=== PATIENT | female | born 1990 | race Caucasian/White ===

== ENCOUNTER → 2017-08-08 | Outpatient (CLI) | payer BC ==
[~2017-08-08] MED LIST: EXCETAB PO; PROM25SU8 PO; ZITHTAB6 PO
== END ==
LOC: HPND 08:35
PROVIDERS: ATTEND Obstetrics & Gynecology
DX: O43.892 Other placental disorders, second trimester (principal)
CPT/HCPCS: 76805

== ENCOUNTER → 2017-08-23 | Outpatient (CLI) | payer BC | LOC: HPND 10:11 | PROVIDERS: ATTEND Obstetrics & Gynecology | DX: O43.892 Other placental disorders, second trimester (principal) | CPT/HCPCS: 76815; 76817 ==

== ENCOUNTER 2017-12-07 20:36 | Inpatient (IN) | payer BC, MEDICAID ==
[~2017-12-07] VITALS: Ht 170.2 cm; Wt 81.6 kg
--- NOTE | 2017-12-07 21:30 | PD ---
HPI Chief Complaint Contractions Travel History International Travel<30 Days: No Contact w/Intl Traveler<30Days: No Known Affected Area: No History of Present Illness HPI 27-year-old , IUP at 40.2 care uncomplicated. The patient presents complaining of the onset of painful contractions that started approximately 2 hours before she presented. She reports that the contractions have become regular and are occurring every 2-4 minutes. There are no alleviating factors and no attempted treatments. She reports contractions have increased in intensity and frequency and are becoming aggravated with time. She denies any leaking of fluid or vaginal bleeding. She reports good movement. She has no other obstetric complaints today. Weeks Gestation: 40 Para: 0 : 1 History Past Medical History Medical History: Denies Significant Hx Obstetric History Obstetric History Past Surgical History Narrative Surgical Hand surgery Family History Family History: Negative Social History Alcohol Use: No Tobacco Use: No Substance Abuse: No Allergies-Medications (Allergen,Severity, Reaction): Coded Allergies: No Known Allergies (Verified Allergy, Unknown, 12/07/17) Home Meds Active Scripts Promethazine Hcl (Promethazine Hcl) 25 Mg Tab, 25 MG PO Q6H Y for NAUSEA OR VOMITING, #10 TAB FOR NAUSEA/VOMITING Prov:Suzan Hodgson MD 09/18/15 Azithromycin (Zithromax Tri-Thierry) Tab, 500 MG PO DIRECTED for 3 Days, TAB 1 TAB (500 MG) PO DAILY FOR 3 DAYS. Prov:Suzan Hodgson MD 09/18/15 Reported Medications [id number]-Ndkfiexv (Excedrin Migraine) Migraine Tab, 1 PO DAILY 09/18/15 Review of Systems Except as stated in HPI: all other systems reviewed are Neg Physical Exam Narrative GENERAL: Well-nourished, well-developed patient. SKIN: Warm and dry. HEAD: Normocephalic and atraumatic. EYES: No scleral icterus. No injection or drainage. ENT: No nasal drainage noted. Mucous membranes pink. Airway patent. NECK: Supple, trachea midline. No JVD. CARDIOVASCULAR: Regular rate and rhythm without murmurs, gallops, or rubs. RESPIRATORY: Breath sounds equal bilaterally. No accessory muscle use. BREASTS: Deferred ABDOMEN/GI: Abdomen soft, non-tender, bowel sounds present, no rebound, no guarding Gravid GENITOURINARY: External Genitalia: intact and normal in appearance. Normal BUS. Grossly normal rugated. Physiologic discharge. No cervical or vaginal masses noted. Closed/80/-1 with cervical change to 1/complete/-1. FHT's: heart tones are in the 130s with moderate long-term variability, good accelerations, no decelerations noted. This is a category 1 heart rate tracing a reactive NST. EXTREMITIES: No cyanosis or edema. BACK: Nontender without obvious deformity. NEUROLOGICAL: Awake and alert. Motor and sensory grossly within normal limits. Psychiatric: Grossly normal memory and affect new Musculoskeletal: Grossly normal range of motion, gait, muscle strength MDM Plan Assessment/plan: 1. IUP at 40.2 2. Latent labor: Discussed with Dr. Raymond and will admit overnight, with augmentation as needed in the a.m. the patient is in agreement with the plan and all her questions were answered. 3. heart tones reassuring with a reactive NST and category 1 heart rate tracing, will continue to monitor 4. GBS negative Eufemia Marie MD December 07, 2017 21:30
[2017-12-07] MEDS ORDERED: LACTATED RINGER'S 1000 ML INJ 1,000 ML IV PRN (21:36)
[2017-12-07] MEDS ORDERED: CITRIC ACID-SODIUM CITRATE LIQ 30 ML UDC PO SCH (21:45)
[2017-12-07] MEDS ORDERED: MINERAL OIL 10 ML VIAL TOPICAL PRN (21:45)
[2017-12-07] MEDS ORDERED: LIDOCAINE HCL 1% 50 ML VIAL I-DERMAL PRN (21:45)
[2017-12-07] MEDS ORDERED: LIDOCAINE HCL 1% 50 ML VIAL INFIL PRN (21:45)
[2017-12-07] MEDS ORDERED: SODIUM CHLORID 0.9% 500 ML INJ 500 ML IV PRN (21:45)
[2017-12-07] MEDS ORDERED: OXYTOCIN 30 UNITS-500ML PREMIX 500 ML IV ONE (21:45)
[2017-12-07] MEDS ORDERED: SODIUM CHLOR 0.9% 1000 ML INJ 1,000 ML IV PRN (21:56)
--- NOTE | 2017-12-07 22:01 | HHI.HP ---
History & Physical H&P Patient Name: Justin Mims Unit Number: [id number] Date of : 1990 Patient Status: Admitted Inpatient Attending Doctor: Evette Raymond MD HPI HPI Chief Complaint Contractions Travel History International Travel<30 Days: No Contact w/Intl Traveler<30Days: No Known Affected Area: No History of Present Illness HPI 27-year-old , IUP at 40.2 care uncomplicated. The patient presents complaining of the onset of painful contractions that started approximately 2 hours before she presented. She reports that the contractions have become regular and are occurring every 2-4 minutes. There are no alleviating factors and no attempted treatments. She reports contractions have increased in intensity and frequency and are becoming aggravated with time. She denies any leaking of fluid or vaginal bleeding. She reports good movement. She has no other obstetric complaints today. Weeks Gestation: 40 Para: 0 : 1 History (Limited) History Past Medical History Medical History: Denies Significant Hx Obstetric History Obstetric History Past Surgical History Narrative Surgical Hand surgery Family History Family History: Negative Social History Alcohol Use: No Tobacco Use: No Substance Abuse: No Allergies-Medications Allergies-Medications (Allergen,Severity, Reaction): Coded Allergies: No Known Allergies (Verified Allergy, Unknown, 12/07/17) Home Meds Active Scripts Promethazine Hcl (Promethazine Hcl) 25 Mg Tab, 25 MG PO Q6H Y for NAUSEA OR VOMITING, #10 TAB FOR NAUSEA/VOMITING Prov:Suzan Hodgson MD 09/18/15 Azithromycin (Zithromax Tri-Thierry) Tab, 500 MG PO DIRECTED for 3 Days, TAB 1 TAB (500 MG) PO DAILY FOR 3 DAYS. Prov:Suzan Hodgson MD 09/18/15 Reported Medications [id number]-Mysptjtclmxxh-Dnzjvclg (Excedrin Migraine) Migraine Tab, 1 PO DAILY 09/18/15 ROS Review of Systems Except as stated in HPI: all other systems reviewed are Neg Physical Exam Physical Exam Narrative GENERAL: Well-nourished, well-developed patient. SKIN: Warm and dry. HEAD: Normocephalic and atraumatic. EYES: No scleral icterus. No injection or drainage. ENT: No nasal drainage noted. Mucous membranes pink. Airway patent. NECK: Supple, trachea midline. No JVD. CARDIOVASCULAR: Regular rate and rhythm without murmurs, gallops, or rubs. RESPIRATORY: Breath sounds equal bilaterally. No accessory muscle use. BREASTS: Deferred ABDOMEN/GI: Abdomen soft, non-tender, bowel sounds present, no rebound, no guarding Gravid GENITOURINARY: External Genitalia: intact and normal in appearance. Normal BUS. Grossly normal rugated. Physiologic discharge. No cervical or vaginal masses noted. Closed/80/-1 with cervical change to 1/complete/-1. FHT's: heart tones are in the 130s with moderate long-term variability, good accelerations, no decelerations noted. This is a category 1 heart rate tracing a reactive NST. EXTREMITIES: No cyanosis or edema. BACK: Nontender without obvious deformity. NEUROLOGICAL: Awake and alert. Motor and sensory grossly within normal limits. Psychiatric: Grossly normal memory and affect new Musculoskeletal: Grossly normal range of motion, gait, muscle strength Data Data [facility] Plan Assessment/plan: 1. IUP at 40.2 2. Latent labor: Discussed with Dr. Raymond and will admit overnight, with augmentation as needed in the a.m. the patient is in agreement with the plan and all her questions were answered. 3. heart tones reassuring with a reactive NST and category 1 heart rate tracing, will continue to monitor 4. GBS negative Eufemia Marie MD December 07, 2017 21:30 Eufemia Marie MD December 07, 2017 22:01
[2017-12-07 22:31] VITALS: BP 147/90; PULSE 76
[2017-12-07] MEDS: LACTATED RINGER'S 1000 ML INJ 1,000 ML IV SCH (22:32)
[2017-12-07] MEDS ORDERED: PRENTAB7 (22:35)
[2017-12-07 22:40] VITALS: BP 128/82; PULSE 83
[2017-12-07 23:29] LABS: AUTOMATED NEUTROPHIL # 10.1 TH/MM3 (1.8-7.7); BASOPHIL # 0.1 TH/MM3 (0-0.2); BASOPHIL % 0.5 % (0.0-2.0); EOSINOPHIL # 0.1 TH/MM3 (0-0.4); EOSINOPHIL % 0.4 % (0.0-4.0); HEMATOCRIT 39.8 % (35.0-46.0); HEMOGLOBIN 13.4 GM/DL (11.6-15.3); LYMPH % 18.2 % (9.0-44.0); LYMPHOCYTE # 2.4 TH/MM3 (1.0-4.8); MEAN CELL VOLUME 86.5 FL (80.0-100.0); MEAN CORPUSCULAR HEMOGLOBIN 29.1 PG (27.0-34.0); MEAN CORPUSCULAR HGB CONC 33.6 % (32.0-36.0); MEAN PLATELET VOLUME 10.7 FL (7.0-11.0); MONO % 5.2 % (0.0-8.0); MONOCYTE # 0.7 TH/MM3 (0-0.9); NEUT % 75.7 % (16.0-70.0); PLATELET COUNT 180 TH/MM3 (150-450); RED CELL DISTRIBUTION WIDTH 13.6 % (11.6-17.2); WHITE BLOOD COUNT 13.3 TH/MM3 (4.0-11.0)
[2017-12-07 23:46] LABS: BACTERIA, URINE RARE /hpf; BILIRUBIN, URINE NEG (NEG); BLOOD, URINE NEG (NEG); GLUCOSE,URINE NEG (NEG); KETONE, URINE NEG (NEG); MUCUS URINE FEW /lpf (OCC); NITRITE,URINE NEG (NEG); PH, URINE 6.5 (5.0-8.5); SQUAMOUS EPITHELIAL CELL URINE <1 /hpf (0-5); URINE COLOR LIGHT-YELLOW (YELLW/STRAW); URINE LEUKOCYTE ESTERASE NEG (NEG)
[2017-12-08] VITALS (51 sets, daily range): BP systolic 99–154; BP diastolic 55–98; PULSE 75–122; RESP 15–18; TEMP 97.7–98.7
[2017-12-08] MEDS ORDERED: fentaNYL 2MCG-BUPIV 0.125% INJ 100 ML ONE (00:58)
[2017-12-08] MEDS ORDERED: ePHEDrine/NS 25 MG/5 ML SYRINGE ONE (01:00)
[2017-12-08] MEDS ORDERED: LIDOCAINE 2%/EPINEPHrine PF 1:200,000 20ML SDV ONE (01:14)
[2017-12-08] MEDS: LACTATED RINGER'S 1000 ML INJ 1,000 ML IV SCH (02:20)
[2017-12-08] MEDS: ONDANSETRON HCL 4 MG/2 ML VIAL IV PUSH PRN ×2 (04:50→09:03)
[2017-12-08] MEDS: fentaNYL 2MCG-BUPIV 0.125% 100 ML EPIDURAL PRN ×2 (04:58→08:56)
[2017-12-08] MEDS ORDERED: fentaNYL 2MCG-BUPIV 0.125% 150 ML EPIDURAL PRN (05:00)
[2017-12-08] MEDS ORDERED: NO SYSTEM NARCOTICS PRN (05:00)
[2017-12-08] MEDS ORDERED: ePHEDrine/NS 25 MG/5 ML SYRINGE IV PUSH PRN (05:00)
[2017-12-08] MEDS ORDERED: DO NOT ADMINISTER ANTICOAGULANTS PRN (05:00)
[2017-12-08] MEDS ORDERED: OXYTOCIN 30 UNITS/NS 500ML PREMIX IV PRN (08:00)
[2017-12-08] MEDS ORDERED: ONDANSETRON HCL 4 MG/2 ML VIAL IV PUSH ONE (10:00)
--- NOTE | 2017-12-08 11:24 | PD.OB.DELI ---
Weeks gestation: 40 Anesthesia: Epidural Episiotomy: None Vaginal Delivery: Normal Presentation: Occiput anterior Nuchal Cord: None Delayed cord clamping (45 sec): Yes : Male Delivery date: December 08, 2017 Delivery time: 11:02 One Minute : 9 Five Minute : 9 Weight: 3760g Placenta: Spontaneous delivery, Intact, 3 vessel cord Laceration: 1 deg (left labial), 2 deg (perineal) Repair: Vicryl running (3-0 vicryl running for perineal laceration, 5-0 vicryl running for left labial laceration) Estimated blood loss: 250cc Additional Information Baby Bryan! Supervised by Dr. Raymond. Jennie Rondon MD R3 December 08, 2017 11:23
[2017-12-08] MEDS ORDERED: OXYTOCIN 30 UNITS-500ML PREMIX 500 ML IV SCH (11:30)
[2017-12-08] MEDS ORDERED: ONDANSETRON ODT 4 MG TAB PO PRN (11:30)
[2017-12-08] MEDS ORDERED: DOCUSATE SODIUM 50 MG/SENNA 8.6 MG TAB PO PRN (11:30)
[2017-12-08] MEDS ORDERED: ALUMINUM/MAGNESIUM/SIMETH 30 ML CUP PO PRN (11:30)
[2017-12-08] MEDS ORDERED: oxyCODONE/ACETAMINOPHEN 5 MG/325 MG TAB PO PRN ×2 (11:30)
[2017-12-08] MEDS ORDERED: ACETAMINOPHEN 325 MG TAB PO PRN (11:30)
[2017-12-08] MEDS ORDERED: SODIUM CHLORIDE 0.9% FLUSH 10 ML FLUSH IV FLUSH PRN (11:30)
[2017-12-08] MEDS ORDERED: ZOLPIDEM TARTRATE 5 MG TAB PO PRN (11:30)
[2017-12-08] MEDS ORDERED: WITCH HAZEL 50%/GLYCERIN 12.5% 40 PAD JAR TOPICAL PRN (11:30)
[2017-12-08] MEDS ORDERED: BENZOCAINE 20% TOPICAL SPRAY 60 ML CAN TOPICAL PRN (11:30)
[2017-12-08] MEDS ORDERED: DIPHTH/TETANUS/ACEL PERTUSSIS (BOOSTER) 0.5 ML VIAL/PFS IM ONE (16:00)
[2017-12-08] MEDS ORDERED: MEASLES, MUMPS, RUBELLA VACCINE 0.5 ML VIAL SQ ONE (16:00)
[2017-12-08] MEDS: IBUPROFEN 800 MG TAB PO PRN (17:52)
[2017-12-08] MEDS ORDERED: SODIUM CHLORIDE 0.9% FLUSH 10 ML FLUSH IV FLUSH SCH (21:00)
[2017-12-09 00:26] VITALS: RESP 16
[2017-12-09] MEDS: IBUPROFEN 800 MG TAB PO PRN ×2 (01:00→14:32)
--- NOTE | 2017-12-09 07:37 | HHI.OB ---
Subjective Post Day: 1 Remarks Doing well, Pain is controlled Baby is doing well Bleeding is normal Objective Vitals/I&O Vital Signs Date Time Temp Pulse Resp B/P (MAP) Pulse Ox O2 Delivery O2 Flow Rate FiO2 12/09/17 00:26 16 12/08/17 22:45 16 12/08/17 19:54 82 16 120/91 (101) 12/08/17 19:54 98.5 12/08/17 14:39 97.8 81 18 129/88 (102) 12/08/17 13:15 18 12/08/17 12:30 16 12/08/17 12:15 96 128/90 (103) 12/08/17 12:00 18 12/08/17 11:45 103 134/93 (107) 12/08/17 11:45 18 12/08/17 11:31 110 135/72 (93) 12/08/17 11:30 110 140/90 (107) 12/08/17 11:23 98.2 116 17 143/88 (106) 12/08/17 11:01 122 154/84 (107) 12/08/17 10:30 113 140/98 (112) 12/08/17 10:18 18 12/08/17 10:00 92 110/61 (77) 12/08/17 09:30 87 121/78 (92) 12/08/17 09:15 98.4 12/08/17 09:15 17 12/08/17 08:09 18 12/08/17 08:00 89 114/62 (79) Objective Remarks GENERAL: Well-nourished, well-developed patient. CARDIOVASCULAR: Regular rate and rhythm without murmurs, gallops, or rubs. RESPIRATORY: Breath sounds equal bilaterally. No accessory muscle use. ABDOMEN/GI: Abdomen soft, non-tender. Fundus: Firm, non-tender at umbilicus. GENITOURINARY: Light to moderate bleeding. EXTREMITIES: No cyanosis or edema, non-tender, without signs of DVT. Medications and IVs Current Medications Medications (Trade) Dose Ordered Sig/Dotty Route Start Time Stop Time Status Last Admin (NS Flush) 2 ml BID IV FLUSH 12/08/17 21:00 (NS Flush) 2 ml UNSCH PRN IV FLUSH 12/08/17 11:30 (Tylenol) 650 mg Q4H PRN PO 12/08/17 11:30 (Motrin) 800 mg Q8H PRN PO 12/08/17 11:30 12/09/17 01:00 (Percocet 5-325 Mg) 1 tab Q4H PRN PO 12/08/17 11:30 (Percocet 5-325 Mg) 2 tab Q4H PRN PO 12/08/17 11:30 (Americaine 20% Top Spr) 1 spray Q4H PRN TOPICAL 12/08/17 11:30 (Tucks Pads) 1 applic QID PRN TOPICAL 12/08/17 11:30 (Mell-Colace) 2 tab Q12H PRN PO 12/08/17 11:30 (Ambien) 5 mg HS PRN PO 12/08/17 11:30 (Mag-Al Plus Susp Liq) 15 ml Q8H PRN PO 12/08/17 11:30 (Zofran Odt) 4 mg Q6H PRN PO 12/08/17 11:30 Assessment/Plan Assessment and Plan PPD #1 Several high BPs. Will follow no other s/s of pre eclampsia. Routine care Evette Raymond MD December 09, 2017 07:37
[2017-12-09 08:00] VITALS: BP 112/80; PULSE 84; RESP 20; TEMP 97.6
--- NOTE | 2017-12-09 08:48 | HHI.DCPOC ---
Discharge Care Plan Diagnosis: (1) Normal vaginal delivery Your Health Problems Are: Vaginal delivery Report Symptoms to Your Doctor -Temperature above 100.5 degrees -Redness, of incision or excessive or foul smelling drainage -Unusual pain or calf pain -Increased vaginal bleeding -Painful or difficulty urinating -Feelings of extreme sadness or anxiety after 2 weeks Goals to Promote Your Health * To prevent worsening of your condition and complications * To maintain your health at the optimal level Directions to Meet Your Goals Take your medications as prescribed Follow your dietary instruction Follow activity as directed Ensure plenty of rest for recovery Drink fluids for hydration Keep your appointments as scheduled Take your immunizations and boosters as scheduled If your symptoms worsen call your PCP, if no PCP go to Urgent Care Center or Emergency Room Smoking is Dangerous to Your Health. Avoid second hand smoke Call the 24-hour crisis hotline for domestic abuse at Marcela Brown December 09, 2017 08:48
[2017-12-09 20:52] VITALS: BP 113/76; PULSE 72; RESP 18; TEMP 97.8
[2017-12-10] MEDS: IBUPROFEN 800 MG TAB PO PRN (00:52)
[2017-12-10 08:00] VITALS: BP 118/77; PULSE 83; RESP 20; TEMP 98.2
== END 2017-12-10 10:10 | disposition home or self-care (01) | DRG 775 ==
LOC: HOBED 20:36 → H2EB 21:58 → H1EA 12-08 13:37
PROVIDERS: ADMIT Obstetrics & Gynecology; ATTEND Obstetrics & Gynecology
PROC: 10E0XZZ Delivery of Products of Conception, External Approach (ICD-10-PCS; principal; 2017-12-08)
PROC: 0KQM0ZZ Repair Perineum Muscle, Open Approach (ICD-10-PCS; 2017-12-08)
PROC: 0UQMXZZ Repair Vulva, External Approach (ICD-10-PCS; 2017-12-08)
PROC: 3E0R3BZ Introduction of Anesthetic Agent into Spinal Canal, Percutaneous Approach (ICD-10-PCS; 2017-12-08)
PROC: 00HU33Z Insertion of Infusion Device into Spinal Canal, Percutaneous Approach (ICD-10-PCS; 2017-12-08)
DX: O70.1 Second degree perineal laceration during delivery (principal); Z37.0 Single live birth; O70.0 First degree perineal laceration during delivery; Z3A.40 40 weeks gestation of pregnancy
CPT/HCPCS: 59025; 80307; 81001; 85025; 86900; 86901; G0481; J2405; J3010; J7120